=== PATIENT | male | born 1965 | race Caucasian/White ===

== ENCOUNTER 2017-11-05 09:03 | Inpatient (IN) | payer OTHER ==
[~2017-11-05] VITALS: Ht 180.3 cm; Wt 100.7 kg
[~2017-11-05 09:03] MED LIST: DIL100 PO; DILANTIN100 MG PO; ZOCOR40 MG PO
[2017-11-05 09:21] VITALS: Ht 180.3 cm; Wt 100.7 kg
[2017-11-05 10:03] LABS: BASOPHIL % 0.1 % (0-2); PLATELET COUNT 225 x10^3mcL (130-400); RED CELL DISTRIBUTION WIDTH 13.8 % (11.5-14.5)
[2017-11-05 10:08] LABS: CALCIUM 8.4 mg/dL (8.5-10.1); CARBON DIOXIDE 29.2 mmol/L (21-32); CHLORIDE SERUM 104 mmol/L (98-107); GFR1 > 60 mL/min; GLUCOSE SERUM 127 mg/dL (74-106); SODIUM SERUM 141 mmol/L (136-145)
[2017-11-05 10:12] LABS: ALBUMIN 3.9 g/dL (3.4-5.0); ALKALINE PHOSPHATASE 72 U/L (46-116); ALT/SGPT 55 U/L (16-63); AST/SGOT 32 U/L (15-37); BILIRUBIN TOTAL 0.6 mg/dL (0.20-1.00); TOTAL PROTEIN, SERUM 7.9 g/dL (6.4-8.2)
[2017-11-05] MEDS ORDERED: DILANTIN100 MG PO ×2 (10:30→10:31)
[2017-11-05 12:40] LABS: PHOSPHOROUS 3.6 mg/dL (2.5-4.9)
[2017-11-05 12:52] LABS: T3 TOTAL 0.97 ng/mL
[2017-11-05 13:01] VITALS: BP 111/61
[2017-11-05 13:04] VITALS: BP 111/61
[2017-11-05 13:34] LABS: CHOLESTEROL/HDL RATIO 3.7
[2017-11-05 13:42] LABS: FREE T4 1.06 ng/dL (0.76-1.46); FREE THYROXINE INDEX 2.1 ug/dL (1.4-4.5); T4(THYROXINE) 6.7 ug/dL (4.7-13.3)
[2017-11-05 17:00] VITALS: BP 121/93
[2017-11-05 22:03] LABS: UA SPECIFIC GRAVITY 1.025 (1.005-1.035); microscopic required? YES; urine erythrocyte 2+ (NEGATIVE)
[2017-11-05 22:11] LABS: AMPHETAMINE QUAL UR NONE DETECTED (NEG <=1000)
[2017-11-05 22:23] VITALS: BP 116/65
[2017-11-06 05:51] VITALS: BP 113/68
[2017-11-06 07:49] LABS: CALCIUM 8.4 mg/dL (8.5-10.1); CARBON DIOXIDE 28.9 mmol/L (21-32); CHLORIDE SERUM 105 mmol/L (98-107); GFR1 > 60 mL/min; GLUCOSE SERUM 102 mg/dL (74-106); PHOSPHOROUS 3.7 mg/dL (2.5-4.9); SODIUM SERUM 141 mmol/L (136-145)
[2017-11-06 07:53] LABS: BASOPHIL % 0.3 % (0-2); PLATELET COUNT 185 x10^3mcL (130-400); RED CELL DISTRIBUTION WIDTH 13.7 % (11.5-14.5)
[2017-11-06 08:54] VITALS: BP 97/60
[2017-11-06 12:14] VITALS: BP 104/64
[2017-11-06 16:15] VITALS: BP 109/71
[2017-11-06 20:48] VITALS: BP 111/73
[2017-11-07 05:14] VITALS: BP 118/70
[2017-11-07 07:45] LABS: BASOPHIL % 0.1 % (0-2); PLATELET COUNT 196 x10^3mcL (130-400)
[2017-11-07 08:14] LABS: CALCIUM 8.5 mg/dL (8.5-10.1); CARBON DIOXIDE 28.2 mmol/L (21-32); CHLORIDE SERUM 104 mmol/L (98-107); GFR1 > 60 mL/min; GLUCOSE SERUM 101 mg/dL (74-106); SODIUM SERUM 140 mmol/L (136-145)
[2017-11-07 09:32] VITALS: BP 120/63
[2017-11-07 12:29] VITALS: BP 113/71
[2017-11-07 16:30] VITALS: BP 121/76
[2017-11-07 21:10] VITALS: BP 113/74
[2017-11-08 05:16] VITALS: BP 103/69
[2017-11-08 06:54] LABS: BASOPHIL % 0.3 % (0-2); PLATELET COUNT 226 x10^3mcL (130-400); RED CELL DISTRIBUTION WIDTH 13.4 % (11.5-14.5)
[2017-11-08 07:32] LABS: CALCIUM 8.7 mg/dL (8.5-10.1); CARBON DIOXIDE 25.1 mmol/L (21-32); CHLORIDE SERUM 103 mmol/L (98-107); CREATININE SERUM 0.9 mg/dL (0.7-1.3); GFR1 > 60 mL/min; GLUCOSE SERUM 97 mg/dL (74-106); POTASSIUM SERUM 4.2 mmol/L (3.5-5.1); SODIUM SERUM 133 mmol/L (136-145)
[2017-11-08 10:08] VITALS: BP 105/71
[2017-11-08 18:18] VITALS: BP 116/80
[2017-11-08 21:08] VITALS: BP 109/67
[2017-11-09 05:39] VITALS: BP 107/63
[2017-11-09 07:19] LABS: BASOPHIL % 0.3 % (0-2); PLATELET COUNT 231 x10^3mcL (130-400); RED CELL DISTRIBUTION WIDTH 13.5 % (11.5-14.5)
[2017-11-09 08:49] VITALS: BP 97/53
[2017-11-09 09:09] LABS: CALCIUM 9.1 mg/dL (8.5-10.1); CARBON DIOXIDE 20.8 mmol/L (21-32); CHLORIDE SERUM 104 mmol/L (98-107); GFR1 > 60 mL/min; GLUCOSE SERUM 84 mg/dL (74-106); POTASSIUM SERUM 3.9 mmol/L (3.5-5.1); SODIUM SERUM 141 mmol/L (136-145)
[2017-11-09] MEDS ORDERED: ATORVASTATIN CA10 M1 PO (15:29)
[2017-11-09 20:15] VITALS: BP 119/59
[2017-11-10 05:06] VITALS: BP 112/68
[2017-11-10 08:37] LABS: BASOPHIL % 0.2 % (0-2); PLATELET COUNT 230 x10^3mcL (130-400); RED CELL DISTRIBUTION WIDTH 13.8 % (11.5-14.5)
[2017-11-10 09:48] VITALS: BP 108/71
[2017-11-10] MEDS ORDERED: APAP/HYDROCODON1 T13 PO (10:28)
[2017-11-10] MEDS ORDERED: COL100 PO (10:29)
[2017-11-10] MEDS ORDERED: COUMADIN5 MG PO (10:38)
[2017-11-10 12:37] VITALS: BP 114/78
[2017-11-10 17:19] VITALS: BP 97/54
[2017-11-10 17:57] VITALS: BP 97/54
[2017-11-10 18:03] VITALS: BP 97/54
== END 2017-11-10 19:30 | disposition home or self-care (01) | DRG 101 ==
LOC: ED 09:03 → MU 11:21 → DU 11:21 → MU 11-07 15:25
PROVIDERS: Emergency Medicine; Family Medicine; Student in an Organized Health Care Education/Training Program
DX: G40.901 Epilepsy, unspecified, not intractable, with status epilepticus (principal); I82.622 Acute embolism and thrombosis of deep veins of left upper extremity; G47.33 Obstructive sleep apnea (adult) (pediatric); E78.5 Hyperlipidemia, unspecified; R31.9 Hematuria, unspecified; Z68.30 Body mass index [BMI] 30.0-30.9, adult; Z87.820 Personal history of traumatic brain injury; Z82.49 Family history of ischemic heart disease and other diseases of the circulatory system; Z82.3 Family history of stroke; Z80.42 Family history of malignant neoplasm of prostate
CPT/HCPCS: 83880; 84439; J1165; J1644; J2060; J7030; Q0092